=== PATIENT | female | born 1990 | race Caucasian/White ===

== ENCOUNTER → 2017-08-17 15:35 | Outpatient (CLI) | payer OTHER, SELFPAY | PROVIDERS: Visit Provider Obstetrics & Gynecology | DX: R30.0 Dysuria (principal) | CPT/HCPCS: 87086; 87088 ==

== ENCOUNTER 2017-09-05 18:00 | Outpatient (RCR) | payer OTHER, SELFPAY ==
--- NOTE | 2017-05-13 16:04 | HP.PTEVAL_ITS ---
Patient's Visit Information WILLIAMS BONILLA is a 27 year old F referred to Physical Therapy by Out of Town Doctor KYLIE TOWNSEND MD with a diagnosis of FIBROMYALGIA. Date of Evaluation: 05/13/17 Physical Therapist: Macy Barajas Visit Plan Frequency: 2-3x /Week Duration: 4-6 Weeks Plan: AQUATIC THERAPY. POSTURE CORRECTION/STRENGTHENING, INSTRUCTION IN APPROPRIATE BODY MECHANICS AND ACTIVITY MODIFICATIONS. DLS STARTING WITH A NEUTRAL SPINE PROGRESSING ROM TOLERATED. DIMA LE ROM, STRETCHING AND STRENGTHENING. HEP INSTRUCTION. 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 Disability: NO. Present symptoms: PAIN IN HANDS, BOTTOM OF FEET, NECK AND LEFT HIP/BACK. GENERAL PAIN IN ARMS AND LEGS TOO. Present since: ABOUT AGE 14 WHEN DIAGNOSED WITH IBS. STOMACH PAINS SINCE AGE 14 OR SO. MORE SYMPTOMS STARTED TO SHOW UP ABOUT 4 YEARS AGO. Pain Scale: WORST 6/10, LEAST 2/10. Currently: 4/10 IN HANDS, NECK AND LEFT BACK/ HIP RIGHT NOW. SHE REPORTS HER OVER ALL PAIIN IS WORSENING. Commenced as a result of: NO APPARENT REASON. 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 Symptoms at onset: ABDOMINAL PAIN. Worse: ANY PHYSICAL ACTIVITY. Better: HOT SHOWER, ICING HANDS, LEFT HIP STRETCHES GIVEN BY DOCTOR. Disturbed sleep: NO. Previous history/Previous treatment: LUPUS MEDICATION. ANXIETY MEDS. NO PT SINCE HIGH SCHOOL. NO CHIROPRACTIC. NO SPINE OR EXTREMITY SURGERIES. Gait: INDEP GAIT. Accidents: NO. Unexplained weight loss: IN THE LAST YEAR PATIENT HAS LOST ALMOST 30 LBS FOR NO APPARENT REASON. PATIENT REPORTS HER WEIGHT KEEPS DROPPING. HER FAMILY DOCTOR IS KEEPING AN EYE ON IT - DR. BOWDEN. SHE REPORTS SHE IS STILL DROPPING WEIGHT AND LOSING HER HAIR. DR. KYLIE TOWNSEND IN [place] THOUGHT IT MIGHT BE FROM THE LUPUS MEDICINE BUT SHE STOPPED THAT ABOUT A MONTH AGO. Imaging: NONE. PMH: ALLERGIES, ASTHMA, IBS, ACID REFLUX, FIBROMYALGIA, BLADDER ISSUES, MIGRAINES. Recent major surgery: TONSILS, BREAST BIOPSY 2013 - NEGATIVE. OTHER: LIVES ALONE. - Objective Sitting Posture: POOR. Standing Posture: FAIR. Lordosis: NORMAL. Lateral shift: NO. Relevant shift: N/A. Active Correction of posture: WORSE. Other Observations: INDEP GAIT INTO PT WITH NO GROSS DEVIATIONS NOTED EXCEPT RIGIT TRUNK IN SLIGHT FLEXION. INDEP TRANSFER SIT TO STAND WITHOUT UE ASSIST. Motor deficit: DIMA UE AND LE STRENGTH IS GROSSLY 4-5/5 WITH MMT'ING. I PROCEEDED CAREFULLY WITH MMT DUE TO PATIENT APPEARING VERY ANXIOUS THROUGHOUT PT EXAM. Sensory deficit: DIMA UE AND LE LIGHT TOUCH SENSATION IS INTACT AND SYMMETRICAL. ROM deficit: DMIA UE AND LE ROM IS WFL. Lumbar mvmt loss: flex - MOD AND PROVOKES LEFT LOW BACK/HIP PAIN. ext - MIN AND PROVOKES CENTRAL DIMA LBP. R SG - MIN. L SG - MIN. PATIENT IS VERY CAUTIOUS WITH ALL TESTING. Core strength: POOR. Palpation: NO ACUTE TENDERNESS WITH LIGHT PALPATION OF CERVICAL, THORACIC OR LUMBAR SPINE. TENDER WITH LIGHT PALPATION IN THE RIGHT BUTTOCK AND GREATER TROCH REGIONS. - Goals Goal 1:: DECREASE C/O GENERALIZED PAIN ESPECIALLY LEFT LOW BACK/HIP Goal Time Frame: 4-6 Weeks Goal 2:: IMPROVE STANDING, WALKING, ADL, WORK AND LEISURE FUNCTION Goal Time Frame: 4-6 Weeks Goal 3:: INSTRUCT IN PROPHYLAXIS Goal Time Frame: 4-6 Weeks - Rehabilitation Potential Physical Therapy Diagnosis: PATIENT MAY BENEFIT FROM LUMBAR IMAGING. Rehabilitation Potential: Fair - Anticipated Interventions Patient/Client Instruction: Educate patient on: Condition, Plan of Care, Risk Factors, Benefits of Fitness Program For the Purpose of:: To improve self management Therapeutic Exercise to Include: Strength training, Body mechanics, Postural training, Flexibilty training, In an aquatic setting, Dynamic Lumbar Stabilization, Scapular Strength/Stabilization For the Purpose of:: To improve ability of physical actions for home/community/ work/leisure Thank you for the opportunity to evaluate your patient. For Medicare and Medicare HMO plans, please review the plan of care and approve it. It will need to be FAXED BACK to us at [phone] for Medicare purposes. Please let me know if there are questions or concerns regarding this plan of care. Physician Signature: Date:
--- NOTE | 2017-08-01 17:37 | HP.PTREVAL ---
Out of Town Doctor, KLYIE TOWNSEND MD It has been my pleasure to treat WILLIAMS BONILLA over the last 15 visits for FIBROMYALGIA. Please see the progress note below for an update on the physical therapy plan of care! Subjective: PATIENT REPORTS SHE IS GETTING BETTER AND WANTS TO CONTINUE. STATES SHE HAD A FOLLOW UP WITH HER OCCUPATIONAL HYGIENIST AND HE RECOMMENDS CONTINUED WATER EX TOO. STATES SHE IS STARTING TO FEEL STRONGER. Objective/Function: PATIENT IS SHOWING SLOW PROGRESS WITH STRENGTH AND REPORTS OF PAIN HOWEVER NO CHANGE ON FUNCTIONAL SCREEN. UPON EXAM: Lumbar mvmt loss: flex - MIN. ext - MIN AND PROVOKES CENTRAL DIMA LBP. R SG - MIN. L SG - MIN. PATIENT IS STILL CAUTIOUS WITH ALL TESTING BUT LESS ANXIOUS THIS TIME. Core strength: POOR TO FAIR. Palpation: TENDERNESS WITH LIGHT PALPATION OF THORACIC AND DIMA HIPS WITH PATIENT REPORTING GENERALIZED SORENESS. TENDER WITH LIGHT. DIMA UE AND LE STRENGTH 5/5 WITH MMT EXCEPT SHOULDER ABD 4/5 AND DIMA HIPS 4/5. Plan Plan: CONTINUE AQUATIC THERAPY PER ORIGINAL POC 2X'S A WEEK X 2 WEEKS THEN DECREASE TO 1X A WEEK X 6 WEEKS PATIENT BEGINS TO TRANSITION TO INDEP WATER EX AT FACILITY OF HER CHOICE. PROGRESS TOLERATED. Goals Goal 1:: DECREASE C/O GENERALIZED PAIN ESPECIALLY LEFT LOW BACK/HIP Goal Time Frame: 4-6 Weeks Goal Progress: Not Progressing Goal 2:: IMPROVE STANDING, WALKING, ADL, WORK AND LEISURE FUNCTION Goal Time Frame: 4-6 Weeks Goal Progress: Progressing Goal 3:: INSTRUCT IN PROPHYLAXIS Goal Time Frame: 4-6 Weeks Goal Progress: Progressing Anticipated Interventions Patient/Client Instruction: Educate patient on: Condition, Plan of Care, Risk Factors, Benefits of Fitness Program For the Purpose of:: To improve self management Therapeutic Exercise to Include: Strength training, Body mechanics, Postural training, Flexibilty training, In an aquatic setting, Dynamic Lumbar Stabilization, Scapular Strength/Stabilization For the Purpose of:: To improve ability of physical actions for home/community/work/leisure Please do not hesitate to contact me at [phone] by phone or if you have questions or concerns regarding this new plan of care! Sincerely, Macy Whitley
== END 2017-09-05 18:30 | disposition home or self-care (01) ==
LOC: PT 18:00
PROVIDERS: Family Provider Family Medicine; PCP Family Medicine
DX: M79.7 Fibromyalgia (principal)
CPT/HCPCS: 97113 ×2; 97161; 97530

== ENCOUNTER → 2017-09-09 14:54 | Outpatient (CLI) | payer OTHER, SELFPAY | PROVIDERS: Visit Provider Obstetrics & Gynecology | DX: N39.0 Urinary tract infection, site not specified (principal) | CPT/HCPCS: 87086 ==

== ENCOUNTER → 2017-09-09 16:02 | Outpatient (CLI) | payer OTHER, SELFPAY ==
[2017-09-09 18:16] LABS: Color, Urine Yellow (Yellow); Glucose, Dipstick Normal (Normal); Ketone-Dipstick Negative (Negative); Leukocyte Esterase-Dipstick Negative /ul (Negative); Nitrite-Dipstick Negative (Negative); Occult Blood-Urine Negative /ul (Negative); Protein-Dipstick Negative (Negative); Specific Gravity, Urine 1.015 (1.002-1.030); Urine Bilirubin Dipstick Negative (Negative); Urine Clarity Clear (Clear); Urine Urobilinogen Normal (Normal); Urine pH 6.5 (5.0 - 8.0)
[2017-09-09 18:20] LABS: Absolute Lymphocyte Count 1.92 X10^3/ul (0.83-4.51); Basophil# 0.01 X10^3/uL; Basophil% 0.1 % (0-1); Eosinophil# 0.06 X10^3/uL; Eosinophils% 0.7 % (0-5); Hematocrit 40.5 % (37-47); Hemoglobin 13.6 g/dl (12.0-15.0); Lymphocyte # 1.92 X10^3/ul (4.0); Lymphocyte % 22.5 % (19-41); Mean Corp Hgb Conc 33.6 g/gl (32-36); Mean Corpuscular Hgb 31.2 pg (27.0-32.0); Mean Corpuscular Volume 92.9 fL (81-99); Mean Platelet Vol. 9.2 fl (6.2-12.0); Monocyte# 0.54 X10^3/uL; Monocyte% 6.3 % (0-10); Neutrophil # 5.98 X10^3/uL (2.7-7.7); Neutrophil % 70.3 % (47-70); Platelet Count 325 K/mm3 (150-450); RBC Distribution Width SD 40.4 fl (35.1-43.9); Red Blood Count 4.36 M/mm3 (4.2-5.4); White Blood Count 8.5 K/mm3 (4.4-11.0)
[2017-09-09 18:32] LABS: Thyroid Stim Hormone (TSH) 1.29 uIU/mL (0.358-3.74)
[2017-09-09 18:38] LABS: COTININE Drug Screen Negative (<200 ng/mL)
[2017-09-09 18:41] LABS: POSITIVE COUNT NO; POSITIVE DIFFERENTIAL NO; POSITIVE MORPHOLOGY NO
[2017-09-09 18:46] LABS: Amphetamine Urine VISTA NEGATIVE (<1000 ng/mL); Barbiturate Urine VISTA NEGATIVE (< 200 ng/mL); Benzodiazepine Urine VISTA NEGATIVE (< 200 ng/mL); Cocaine Urine VISTA NEGATIVE (< 300 ng/mL); Ecstacy Urine VISTA NEGATIVE (< 500 ng/mL); Methadone Urine VISTA NEGATIVE (< 300 ng/mL); PCP Urine VISTA NEGATIVE (< 25 ng/mL); THC Urine VISTA NEGATIVE (< 50 ng/mL); Vista UDS pH Range 6
[2017-09-09 19:11] LABS: HIV - WCH Non-Reactive (Nonreactive); Rubella IgG > 500.0 IU/mL
[2017-09-11 15:04] LABS: HEPATITIS B SURFACE AG Negative (Negative); Hep C Antibodies <0.1 s/co ratio (0.0-0.9)
[2017-09-16 02:58] LABS: Prenatal RPR NONREACTIVE (NONREACTIVE)
== END ==
PROVIDERS: Visit Provider Obstetrics & Gynecology
DX: Z34.81 Encounter for supervision of other normal pregnancy, first trimester (principal)
CPT/HCPCS: 36415; 80307; 81002; 84443; 85025; 86703; 86762; 86803; 87340

== ENCOUNTER → 2017-11-08 18:13 | Outpatient (CLI) | payer OTHER, SELFPAY ==
[2017-11-08 20:33] LABS: Chlamydia Trachomatis by PCR Negative (Negative); Neisserai gonorrhoeae by PCR Negative (Negative); Probe Check PASS; Sample Adequacy Control PASS; Specimen Processing Control PASS
[2017-11-11 12:10] LABS: HPV Reflexed? NOT INDICATED
== END ==
PROVIDERS: Family Provider Family Medicine; PCP Family Medicine; Visit Provider Obstetrics & Gynecology
DX: Z12.4 Encounter for screening for malignant neoplasm of cervix (principal); Z11.3 Encounter for screening for infections with a predominantly sexual mode of transmission
CPT/HCPCS: 87491; 87591; 88175; G0145

== ENCOUNTER → 2018-01-20 15:41 | Outpatient (CLI) | payer OTHER, SELFPAY ==
[2018-01-20 17:36] LABS: Glucose Challenge Gest 1H 50g 114 mg/dL (70-140)
[2018-01-20 17:37] LABS: Hematocrit 34.1 % (37-47); Hemoglobin 11.3 g/dl (12.0-15.0); Mean Corp Hgb Conc 33.1 g/gl (32-36); Mean Corpuscular Hgb 31.1 pg (27.0-32.0); Mean Corpuscular Volume 93.9 fL (81-99); Platelet Count 296 K/mm3 (150-450); RBC Distribution Width CV 12.7 % (11.6-14.6); RBC Distribution Width SD 43.5 fl (35.1-43.9); Red Blood Count 3.63 M/mm3 (4.2-5.4); White Blood Count 10.8 K/mm3 (4.4-11.0)
[2018-01-20 17:38] LABS: Scan Indicated on CBC? Y/N NO
== END ==
PROVIDERS: Visit Provider Obstetrics & Gynecology
DX: Z34.83 Encounter for supervision of other normal pregnancy, third trimester (principal)
CPT/HCPCS: 36415; 82950; 85027

== ENCOUNTER 2018-02-11 21:17 | Observation (INO) | payer OTHER, SELFPAY ==
[2018-02-11] MEDS: Betamethasone/Betamethasone 30 MG/5 ML Vial 12 MG IM (20:54)
[2018-02-11 21:15] LABS: Hematocrit 32.8 % (37-47); Hemoglobin 11.2 g/dl (12.0-15.0); Mean Corp Hgb Conc 34.1 g/gl (32-36); Mean Corpuscular Hgb 31.8 pg (27.0-32.0); Mean Corpuscular Volume 93.2 fL (81-99); Mean Platelet Vol. 8.8 fl (6.2-12.0); Platelet Count 266 K/mm3 (150-450); RBC Distribution Width CV 12.8 % (11.6-14.6); RBC Distribution Width SD 43.6 fl (35.1-43.9); Red Blood Count 3.52 M/mm3 (4.2-5.4); Scan Indicated on CBC? Y/N NO; White Blood Count 10.9 K/mm3 (4.4-11.0)
--- NOTE | 2018-02-11 21:26 | MISC_PTH ---
PATIENT: ADRI SANDOVAL LOC: [facility] U#:[id number] AGE/SX: 27/F ROOM: WP015 RE02/11/[address]: Dr. Adri Richards MD : 1990 BED: 1 DIS: 02/13/2018 SPEC #: [id number] RECD: 02/11/18 23:00 STATUS: MERRITT ADDY #: [id number] LILIAN: 02/11/18 21:[address]: Adri Richards DEPT: SURGICAL PATHOLOGY RECD BY: Roxi Orellana ENTERED: 02/13/18 09:29 SP TYPE: [facility] [place]: Dr. Derrick Copeland, DO Tissues: Vagina, NOS Procedures: Surgery Specimen Level III HEADER OPERATION: Not noted PRE-OP DIAGNOSIS: Complete placenta previa TISSUE SUBMITTED: Tissue passed per vagina MICROSCOPIC DIAGNOSIS Tissue passed per vagina: A piece of blood clot and fibrinous material with numerous organisms consistent with bacteria. Placental tissue is not identified. KANA:michael 02/14/18 MICROSCOPIC DESCRIPTION Slides are reviewed. GROSS DESCRIPTION Received is one container labeled with the patient's name and not further designated. The specimen consists of a piece of blood clot measuring 6 x 3 x 2 cm. A whitish piece of tissue is noted at one edge of the specimen. No tissue or placental tissue is identified. Bowling Ball Weigher And Packer sections are submitted in three cassettes. The whitish tissue is present in cassette #1. / KANA:michael 02/13/18 TC:5 CPT: 49192
[2018-02-11 21:33] VITALS: BMI 25.6
[2018-02-11 22:58] LABS: Pathology Specimen OB SEE PATHOLOGY REPORT
[2018-02-12] MEDS: Zolpidem Tartrate 5 MG Tablet PO (00:48)
--- NOTE | 2018-02-12 09:31 | PCM.HP.OB ---
- Problem List (1) Placenta previa Status: Chronic (2) Vaginal bleeding during Status: Acute (3) 31 to 32 weeks gestation of Status: Acute History Date of Admission: 02/11/18 Final WM: 04/11/18 Final WM Source: US <20 weeks Gestational age: 31 Weeks and 5 Days History of this : This is a 27 year-old, G 1, P 0, at 31 4/7 wk gestational age presents for evalutaion with CC of heavy vaginal bleeding. Relates she has had severe back pain and lower abdominal pain in the last day or so and was unable to walk due to the pain, but just started bleeding prior to admission. Lives in [place] and the trip was very fast today d/t concerns. Baby is active. She brings in pad with bleeding noted. States placenta previa but has not had any bleeding in the other than several episodes of very scant brown discharge prior to earlier today. She has been on pelvic rest since diagnosis of the previa. She has IBS and fibromyalgia as well as h/o interstitial cystitis, and anxiety. Allergies cephalexin Allergy (Verified 02/11/18 21:35) Hives fluconazole Allergy (Verified 02/11/18 21:34) Rash Home Medications: Home Medications Vit Calc,Iron,Folic [ Vitamins] 1 each PO DAILY 02/11/18 History Past Pregnancies: Past Pregnancies Delivery Date Name GA/Weeks Outcome Route Weight Gender Labor Length Anesthesia Delivery Location Provider FOB NONE> Labs: A Negative. Rubella Immune. Hepatitis B neg , HIV neg, RPR neg. Review of Systems Constitutional: Denies: Chills, Fever Eyes: Denies: Blurred vision HEENT: Denies: Difficulty Hearing Gastrointestinal: Reports: Abdominal Pain - cramping in abdomen and some low back pain. Gynecological: Reports: Vaginal bleeding - scant brn spotting earlier in . Blood running down her leg prior to presentation today. Psychiatric: Reports: Anxiety Physical Exam Vitals: AVSS General: Alert, Oriented x3, Cooperative, No apparent distress HEENT: Atraumatic Abdomen: Soft, Non Tender - active movement on monitor. Difficult to keep baby on monitor 2/2 movement. , Gravid Extremities:: No clubbing, No cyanosis, No edema Neurological: Cranial nerves II-XII grossly intact PRODUCT ASSURANCE ENGINEER: Normal external genitalia - scant blood noted. organized clot vs tissue removed from upper vagina. Estimated gestational size: Appropriate for gestational size Presentation: Cephalic - by sono done 02/08/18 in ofc. EFW 4# 7 oz. DAVID sl inc 22 cm. Cervix Dilation (cm): 0 - visually closed on speculum exam. Assessment/Plan All Active Problems Vaginal bleeding during (Acute) 31 to 32 weeks gestation of (Acute) This is a 27 year-old, G 1, P 0, at 31 4/7 weeks gestational age with known placenta previa. FIRST BLEED Vaginal bleeding with tissue vs organized clot noted on speculum exam, sent for pathology evaluation. monitoring reassuring, active movement. No regular UCs. Minimal bleeding at present. Clinically stable. Admit for extended observation and expectant management. CBC, Type and screen. Saline lock. Betamethasone 12 mg IM tonight and again on 02/12/18, 24 hr after first dose. Benefits discussed with pt and spouse. RhoGAM to be given Reviewed all with patient and her . All questions answered to their satisfaction. If remains stable, may dischg home for continued bedrest and pelvic rest with close follow up in office. Advised if increased bleeding / hemorrhage will proceed to C section delivery and likely at this EGA (10/08) baby would likely require transport to [facility] for care.
--- NOTE | 2018-02-12 09:56 | PCM.PN.OB ---
Patient Problems: Active and Suspected Problems Vaginal bleeding during (Acute) 31 to 32 weeks gestation of (Acute) Subjective: 31 5/7 wk EGA . complete placenta previa Doing well Active FM. Minimal bleeding overnight, nearly resolved then a little more fresh red blood noted. Minimal occasional cramping. Able to sleep. Asking questions about plan from here. - Physical Exam General: Alert, Oriented x3, Cooperative, No apparent distress HEENT: Atraumatic Neck: Supple Abdomen: Soft, Gravid Extremities: No clubbing, No cyanosis, No edema Skin: No rashes Neurological: Cranial nerves II-XII grossly intact Psych/Mental Status: Normal Affect, Appropriate Weight: 69.853 kg Body Mass Index (BMI) 25.6 Laboratory Tests Past 24 Hrs 02/11/18 02/11/18 02/11/18 20:56 20:56 22:55 WBC 10.9 RBC 3.52 L Hgb 11.2 L Hct 32.8 L MCV 93.2 MCH 31.8 MCHC 34.1 RDW 12.8 RDW Differential 43.6 Plt Count 266 MPV 8.8 Blood Type A NEGATIVE Antibody Screen NEGATIVE Screen NEGATIVE Baby's Blood Type TNP Baby's GENARO TNP Medical Necessity - Tobacco Use Tobacco Use: Non-smoker Assessment/Plan All Active Problems Vaginal bleeding during (Acute) 31 to 32 weeks gestation of (Acute) G 1 P 0 at 31 5/7 weeks EGA with known placenta previa. S/P FIRST BLEED. Steroids and RhoGAM given. NST reactive last night and again this am. Active movement. Rare UC noted by patient. Very minimal bleeding . Clinically stable. --NST q shift with prn continuous monitoring if pain or inc bleeding. --Continue observation today. Potential dischg home to continue bedrest at home by tomorrow if all remains stable. --Betamethasone 12 mg IM second dose tonight. Benefits again reviewed with pt and spouse. Discussed plan of care again with patient and her . All questions answered to their satisfaction.
[2018-02-12] MEDS: Prenatal Vits Tablet 1 TABLET PO (10:45)
[2018-02-12] MEDS: Acetaminophen 500 MG Tablet PO (17:03)
[2018-02-12] MEDS: Magnesium Hydroxide 30 ML UDC PO (19:52)
[2018-02-12] MEDS: Betamethasone/Betamethasone 30 MG/5 ML Vial 12 MG IM (21:20)
--- NOTE | 2018-02-13 08:29 | PCM.PN.OB ---
Patient Problems: Active and Suspected Problems Vaginal bleeding during (Acute) 31 to 32 weeks gestation of (Acute) Subjective: 31 6/7 wk EGA placenta previa. No further bleeding, slept well. no spotting. BAKER gone. No cramping. Active FM and doing NST now. - Physical Exam General: Alert, Oriented x3, Cooperative, No apparent distress HEENT: Atraumatic Neck: Supple Abdomen: Soft, Gravid Neurological: Cranial nerves II-XII grossly intact Psych/Mental Status: Normal Affect Comment: NST reactive 130-140 with accels. no UCs noted on monitor Weight: 69.853 kg Body Mass Index (BMI) 25.6 Medical Necessity - Tobacco Use Tobacco Use: Non-smoker Assessment/Plan All Active Problems Vaginal bleeding during (Acute) 31 to 32 weeks gestation of (Acute) G 1 P 0 at 31 6/7 weeks EGA with known placenta previa. S/P FIRST BLEED. Steroids and RhoGAM given. NST reactive this am. Active movement. Rare UC noted by patient. No vaginal bleeding . Clinically stable. Dischg home to continue bedrest. RTO within 1 wk for f/u Return to hospital if inc vaginal bleeding again.
--- NOTE | 2018-02-13 08:32 | PCM.DC.SUM ---
Discharge Date and Diagnosis - Problem List Patient Problems: Active and Suspected Problems Vaginal bleeding during (Acute) 31 to 32 weeks gestation of (Acute) Date of Admission: 02/11/18 Date of Discharge: 02/13/18 - Primary Discharge Diagnosis Active and Suspected Problems Vaginal bleeding during (Acute) 31 to 32 weeks gestation of (Acute) - Secondary Discharge Diagnosis Chronic Problems Placenta previa (Chronic) Hospital Course and Treatment Summary of Care Provided: The patient is a 27 year old female at 31 4/7 wk EGA with complete placenta previa. Presents with severe cramping and vaginal bleeding starting just prior to admission. Admitted for observation, monitoring steroids for lung maturity EXAM at admission: Tissue vs organized clot removed from upper vagina and sent for path evaluation, identification. Very minimal to no active bleeding noted then. cervix appears closed. EFM reassuring with NSTs reactive. Active FM Hgb 11.2 g/dl. A NEG and RHOGAM given on 02/10/18 also. Completed course of steroids on PM 02/11/18 to pm 02/12/18. clinically stable then and sent home to continue bedrest, pelvic rest. Home Medications: Medications to take at Discharge Vit Calc,Iron,Folic [ Vitamins] 1 each PO DAILY 02/11/18 Primary Care Physician: Derrick Copeland DO [Primary Care Provider] - Medical Necessity - Tobacco Use Tobacco Use: Non-smoker Meaningful Use Info Meaningful Use Diagnoses (Choose all that apply): None applicable
== END 2018-02-13 08:46 | disposition home or self-care (01) ==
PROVIDERS: Admitting Provider Obstetrics & Gynecology; Family Provider Family Medicine; PCP Family Medicine; Visit Provider Obstetrics & Gynecology
DX: O44.13 Complete placenta previa with hemorrhage, third trimester (principal); Z3A.31 31 weeks gestation of pregnancy; M79.7 Fibromyalgia; K58.9 Irritable bowel syndrome, unspecified; N30.10 Interstitial cystitis (chronic) without hematuria
CPT/HCPCS: 36415; 59025; 59050; 85027; 85461; 86850; 86900; 88304; 88305; 90384; 96372; 99218; A4216; G0378; J0702; J2790

== ENCOUNTER 2018-02-15 20:15 | Outpatient (CLI) | payer OTHER, SELFPAY ==
[2018-02-15 21:12] LABS: Absolute Lymphocyte Count 2.24 X10^3/ul (0.83-4.51); Absolute Neutrophil Count 9.9 X10^3/uL (2.0-7.7); Basophil# 0.01 X10^3/uL; Basophil% 0.1 % (0-1); Eosinophil# 0.09 X10^3/uL; Eosinophils% 0.7 % (0-5); Hemoglobin 11.7 g/dl (12.0-15.0); Lymphocyte # 2.24 X10^3/ul (4.0); Lymphocyte % 16.9 % (19-41); Mean Corp Hgb Conc 33.4 g/gl (32-36); Mean Corpuscular Hgb 31.3 pg (27.0-32.0); Mean Corpuscular Volume 93.6 fL (81-99); Mean Platelet Vol. 8.8 fl (6.2-12.0); Monocyte# 0.95 X10^3/uL; Monocyte% 7.2 % (0-10); Neutrophil # 9.87 X10^3/uL (2.7-7.7); Neutrophil % 74.4 % (47-70); POSITIVE COUNT NO; POSITIVE DIFFERENTIAL NO; POSITIVE MORPHOLOGY NO; Platelet Count 329 K/mm3 (150-450); RBC Distribution Width SD 44.4 fl (35.1-43.9); Red Blood Count 3.74 M/mm3 (4.2-5.4); White Blood Count 13.3 K/mm3 (4.4-11.0)
--- NOTE | 2018-02-15 21:32 | OB.TRI.NOTE ---
- Problem List (1) Placenta previa Status: Chronic (2) Vaginal bleeding during Status: Acute (3) 31 to 32 weeks gestation of Status: Acute History of Present Illness Date of Service: 02/15/18 Was patient seen by the physician?: Yes Reason For Visit: R/O LABOR, Complete previa with bleeding Date of Service: 02/15/18 Final WM: 04/11/18 Final WM Source: US <20 weeks Gestational age: 32 Weeks and 1 Days History of Present Illness: Adri is a 27 year old at 32w1d ega dated by early first trimester US who presents with episode of abdominal tightening followed by vaginal bleeding. Noted blood soaking through clothes to floor. She has a known complete posterior placenta previa. She has a similar episode 3 days ago and was admitted for observation. Bleeding subsided. Cervix closed on that admission. On her admission 3 days ago was given Rhogam ( patient has A negative blood type). She also was given Celestone IM x 2 doses of 12mg given 24 hours apart. Allergies cephalexin Allergy (Verified 02/11/18 21:35) Hives fluconazole Allergy (Verified 02/11/18 21:34) Rash Review of Systems Constitutional: Denies: Anorexia, Chills, Fever, Night Sweats Cardiovascular: Denies: Chest Pain, Chest Pressure, Chest Tightness, Edema Respiratory: Denies: Shortness of Breath, Shortness of breath at rest Gastrointestinal: Denies: Abdominal Pain, Constipation, Diarrhea, Nausea, Vomiting Genitourinary: Denies: Dysuria, Frequency, Hematuria Gynecological: Reports: Vaginal bleeding Psychiatric: Denies: Anxiety, Depression Physical Exam General: Alert, Oriented x3, Cooperative, No apparent distress Cardiovascular: Regular rate, Regular Rhythm Lungs: Clear to auscultation, Normal air movement Abdomen: Soft, Non Tender, Non-Distended, Gravid, Appropriate for Gestational Age Extremities:: No edema Neurological: Cranial nerves II-XII grossly intact, Neuro grossly intact TEAM DRIVER: Normal external genitalia Estimated gestational size: Appropriate for gestational size Presentation: Cephalic Cervix Dilation (cm): 0 Station: -3 Effacement (%): 0 NST - FHR Rate Baby A Baseline: 150s Variability:: Moderate Accelerations:: 15 x 15 Decelerations:: None NST Reactive:: Yes, Appropriate for gestational age FHR Category:: Category I Uterine Activity:: rare Impression/Plan Complete previa at 32w1d ega with second episode of significant vaginal bleeding over the last 3 days. Hgb 11.7. Rh negative and received rhogam on 02/12. Completed 2 doses of Celestone IM over 24 hours last dose 02/12. Given remoteness from delivery and limitations of our special care nursery will transfer to [facility] under the care of Dr. Duron ([facility]). Patient understands indications and reasons for transfer. Will followup with me if eventually discharged from care.
[2018-02-15 21:59] VITALS: BMI 25.1
== END 2018-02-15 22:40 | disposition short-term general hospital (02) ==
LOC: WPOUT 20:36 → WP 20:37
PROVIDERS: Family Provider Family Medicine; PCP Family Medicine; Visit Provider Obstetrics & Gynecology
DX: O44.13 Complete placenta previa with hemorrhage, third trimester (principal); Z3A.32 32 weeks gestation of pregnancy
CPT/HCPCS: 36415; 59025; 59050; 76815; 85025; 86850; 86900; 86901; 99218; G0378

== ENCOUNTER 2019-04-05 15:08 | Emergency (ER) | payer OTHER, SELFPAY ==
[2019-04-05 15:11] VITALS: BP 118/84; PULSE 103; RESP 16; TEMP 37; O2SAT 98; BMI 22.3
--- NOTE | 2019-04-05 15:14 | RAD_ITS ---
STUDY: X-RAY CHEST REASON FOR EXAM: Female, 28 years old. Palpitations TECHNIQUE: PA and lateral COMPARISON: None. FINDINGS: The lungs are clear and expanded. There is no demonstrated pleural abnormality. Normal size heart. Normal mediastinum and tigre. Normal visualized pulmonary arteries. Normal visualized aortic arch and descending thoracic aorta. Normal visualized thoracic spine. Normal visualized ribs, clavicles, and shoulders. There is no demonstrated abnormality of the visualized soft tissue structures of the upper abdomen. RAD/Chest PA and Lateral IMPRESSION: Normal x-ray examination of the chest. Electronically Signed: Antoine Barron MD at 16:18 EDT , Service support ,
--- NOTE | 2019-04-05 15:14 | EKG12_ITS ---
Test Reason : CP Blood Pressure : / mmHG Vent. Rate : 094 BPM Atrial Rate : 094 BPM P-R Int : 128 ms QRS Dur : 090 ms QT Int : 336 ms P-R-T Axes : 074 084 039 degrees QTc Int : 420 ms Normal sinus rhythm with sinus arrhythmia Normal ECG Confirmed by FREDDY MURILLO ([id number]), design editor CHAR PLASCENCIA ([id number]) on 04/09/2019 12:24:09 PM Referred By: SHANIQUE Confirmed By:FREDDY MURILLO
--- NOTE | 2019-04-05 15:16 | ED.DCSUM_ITS ---
History of Present Illness Chief Complaint: Chest Pain Informant: Patient Onset: Today Context: Sudden Onset Timing: Continuous Current Severity: Moderate Maximum Severity: Severe Narrative: The patient presents to the emergency department chest pain and heart racing. The patient was in her normal state of health. She was at work sitting at her desk. She states she began to feel the sudden onset sensation of heart racing. She states that she wears a exercise watch. She checked her heart rate was in the 200s. She was feeling lightheaded and dizzy. She states that she was given aspirin. She laid down. On squad arrival, her heart rate was in the 1 teens. She was given 1 nitro which helped her pain. She states she is had elevated heart rates in the 150s and 170s but has never been diagnosed with SVT or a reentrant tachycardia. She currently is not taking any medications. She has no history of pulmonary embolus. She denies leg edema. She denies orthopnea. She denies any fevers or chills. Prior similar symptoms: No Recent Illness/Hospitalization: No Past Medical History - Allergies and Home Meds Allergies/Adverse Reactions: Allergies cephalexin Allergy (Verified 04/05/19 15:46) Hives fluconazole Allergy (Verified 04/05/19 15:46) Rash Primary Care Physician: Derrick Copeland DO [Primary Care Provider] - Rajeev Dinh MD [STAFF PHYSICIAN] - Prior records reviewed: Yes Past Medical History: - Surgical History: no surgical history Review of Systems General: Denies: Chills, Fever, Sweats Eyes: Denies: Visual changes - bilaterally, Diplopia ENT: Denies: Rhinorrhea, Sore throat Cardiovascular: Reports: Chest pain, Palpitations, Heart racing Respiratory: Denies: Dyspnea, Cough, Dyspnea on exertion Gastrointestinal: Denies: Abdominal pain, Nausea, Vomiting, Diarrhea, Melena, Hematochezia Genitourinary: Denies: Dysuria, Hematuria, Frequency Musculoskeletal: Denies: Back pain, Extremity Pain Skin: Denies: Rash, Wounds Neurological: Denies: Headache, Weakness, Numbness Physical Exam Inital Vital Signs reviewed: Yes General: Well nourished, Well developed, No Acute Distress Head: Normocephalic, Atraumatic Eyes: Perrl, EOMI ENT: Moist mucous membranes, No rhinorrhea Neck: Supple, Nontender Cardiovascular: Regular rate, Regular rhythm, No murmurs Respiratory: No distress, CTA bilaterally, Chest nontender Abdomen: Soft, Nontender, Nondistended, Normal bowel sounds Back: Nontender, Normal Inspection Extremities: Nontender, No edema Skin: Normal color, No rash Neurological: Alert, Oriented x3, Cranial nerves II-XII grossly intact, Normal Strength, Normal Sensation Psychological: Normal affect, Normal Mood Diagnostic/Tx/Re-eval Chest X-Ray - ED: 2 View, Normal, Heart, Lungs, Mediastinum, No Infiltrates Clinical Impression(s) from Imaging Studies Chest X-Ray 04/05/19 15:14 IMPRESSION: Normal x-ray examination of the chest. Electronically Signed: Antoine Barron MD at 16:18 EDT , Service support , Abnormal Lab Results 04/05/19 04/05/19 04/05/19 15:22 15:22 15:22 WBC 9.2 RBC 4.76 Hgb 14.5 Hct 43.8 MCV 92.0 MCH 30.5 MCHC 33.1 RDW Std Deviation 39.4 RDW Coeff of Ashlie 11.5 L Plt Count 359 MPV 8.8 Immature Gran % (Auto) 0.300 Neut % (Auto) 67.4 Lymph % (Auto) 24.4 [place] % (Auto) 6.7 Eos % (Auto) 0.7 Baso % (Auto) 0.5 Absolute Neuts (auto) 6.2 Absolute Lymphs (auto) 2.25 Nucleated RBC % 0 D-Dimer Quant (PE/DVT) 0.33 Sodium 142 Potassium 3.7 Chloride 107 Carbon Dioxide 29.0 Anion Gap 6 BUN 13 Creatinine 0.73 Estim Creat Clear Calc 102.32 Est GFR (MDRD) Af Amer 120 Est GFR (MDRD) Non-Af 99 BUN/Creatinine Ratio 17.8 Glucose 96 Calcium 8.8 Magnesium 2.1 Total Bilirubin 0.30 AST 10 L ALT 16 Alkaline Phosphatase 71 Troponin I < 0.015 Total Protein 7.5 Albumin 4.1 Globulin 3.4 Albumin/Globulin Ratio 1.2 TSH 1.59 Urine Color Urine Clarity Urine pH Ur Specific [place] Urine Protein Urine Glucose (UA) Urine Ketones Urine Occult Blood Urine Nitrite Urine Bilirubin Urine Urobilinogen Ur Leukocyte Esterase Urine RBC Urine WBC Ur Squamous Epith Cells Urine Bacteria Urine Mucus Urine Test 04/05/19 04/05/19 15:45 15:45 WBC RBC Hgb Hct MCV MCH MCHC RDW Std Deviation RDW Coeff of Ashlie Plt Count MPV Immature Gran % (Auto) Neut % (Auto) Lymph % (Auto) [place] % (Auto) Eos % (Auto) Baso % (Auto) Absolute Neuts (auto) Absolute Lymphs (auto) Nucleated RBC % D-Dimer Quant (PE/DVT) Sodium Potassium Chloride Carbon Dioxide Anion Gap BUN Creatinine Estim Creat Clear Calc Est GFR (MDRD) Af Amer Est GFR (MDRD) Non-Af BUN/Creatinine Ratio Glucose Calcium Magnesium Total Bilirubin AST ALT Alkaline Phosphatase Troponin I Total Protein Albumin Globulin Albumin/Globulin Ratio TSH Urine Color Yellow Urine Clarity Clear Urine pH 8.0 Ur Specific [place] 1.010 Urine Protein Negative Urine Glucose (UA) Normal Urine Ketones Negative Urine Occult Blood Negative Urine Nitrite Negative Urine Bilirubin Negative Urine Urobilinogen Normal Ur Leukocyte Esterase Negative Urine RBC 0 SEEN Urine WBC 0 SEEN Ur Squamous Epith Cells 0 SEEN Urine Bacteria 0 SEEN Urine Mucus 0 SEEN Urine Test Negative - Rhythm Strip Rhythm Strip: Sinus Rhythm Rate: 90 Ectopy: PAC(s) - EKG Initial EKG Interpretation: No Acute Injury Pattern, Sinus Arrythmia Prior: No Prior - Medical Decision Making The patient presents to the emergency department palpitations. She did have a heart rate in the 200s. EKG was obtained on arrival. She is now in a sinus arrhythmia at a rate of 104. There is no evidence of WPW. There is a normal axis and intervals. Metabolic work-up was pursued. Screening labs including cardiac enzymes and electro lites were normal. Chest x-ray shows no enlarged cardiac silhouette. D-dimer testing was negative. The patient maintained sinus at a rate of 90. At this point, my suspicion is either for SVT or AVRNT. The patient is now in sinus rhythm with a rate of 88. I did discuss the patient with Dr. Dinh. We are going to have the patient wear a Holter monitor and follow-up as an outpatient with cardiology. She is comfortable with this plan of care. Impression. 1. Symptomatic palpitations-resolved ED Disposition - Plan for ED Patient: Instructions: Palpitations Referrals: Derrick Copeland DO [Primary Care Provider] - Rajeev Dinh MD [STAFF PHYSICIAN] -
[2019-04-05 15:24] VITALS: PULSE 111; RESP 16; O2SAT 98
[2019-04-05 15:40] VITALS: BP 109/76; BP 110/81; BP 123/93; PULSE 102; PULSE 121; PULSE 95
[2019-04-05 15:40] LABS: Absolute Lymphocyte Count 2.25 X10^3/uL (0.83-4.51); Absolute Neutrophil Count 6.2 X10^3/uL (2.0-7.7); Basophil# 0.05 X10^3/uL; Basophil% 0.5 % (0-1); Eosinophil# 0.06 X10^3/uL; Eosinophils% 0.7 % (0-5); Hematocrit 43.8 % (37-47); Hemoglobin 14.5 g/dL (12.0-15.0); Lymphocyte # 2.25 X10^3/ul (4.0); Lymphocyte % 24.4 % (19-41); Mean Corp Hgb Conc 33.1 g/dL (32-36); Mean Corpuscular Hgb 30.5 pg (27.0-32.0); Mean Platelet Vol. 8.8 fl (6.2-12.0); Monocyte# 0.62 X10^3/uL; Monocyte% 6.7 % (0-10); NRBC Flagged by Analyzer 0 % (0-5); Neutrophil # 6.21 X10^3/uL (2.7-7.7); Neutrophil % 67.4 % (47-70); Platelet Count 359 K/mm3 (150-450); RBC Distribution Width CV 11.5 % (11.6-14.6); RBC Distribution Width SD 39.4 fl (35.1-43.9); Red Blood Count 4.76 M/mm3 (4.2-5.4); White Blood Count 9.2 K/mm3 (4.4-11.0)
[2019-04-05] MEDS: 0.9% Normal Saline 1,000 ML 1000 ML IV (15:46)
[2019-04-05 15:51] LABS: Bacteria 0 SEEN /hpf (None Seen); Mucous, Urine 0 SEEN /hpf (<or=2+); Red Blood Cells-Urine 0 SEEN /hpf (0-5); Squamous Epithelial Cells - UA 0 SEEN /hpf (5-10); White Blood Cells 0 SEEN /hpf (0-5)
[2019-04-05 15:59] LABS: ALB/GLOB Ratio 1.2 RATIO (0.9-2.4); AST(SGOT) 10 U/L (15-37); Alanine Aminotransfer ALT/SGPT 16 U/L (13-56); Albumin, Serum 4.1 g/dL (3.2-5.0); Alkaline Phosphatase 71 U/L (45-117); Anion Gap 6 (5-15); BUN 13 mg/dL (7-18); BUN/Creat Ratio 17.8 RATIO (10-20); Calcium,Total 8.8 mg/dL (8.5-10.1); Chloride 107 mmol/L (98-107); Creatinine, Serum 0.73 mg/dL (0.55-1.02); EST Glomerular Filtration Rate 99 mL/min (>60); Est Glom Filt Rate - Afr Amer 120 mL/min (>60); Estimated Creatinine Clearance 102.32 ml/min; Globulin 3.4 g/dL (2.2-4.2); Glucose 96 mg/dL (74-106); Magnesium 2.1 mg/dL (1.6-2.6); Potassium 3.7 mmol/L (3.5-5.1); Protein, Total 7.5 g/dL (6.4-8.2); Sodium Level 142 mmol/L (136-145); Thyroid Stim Hormone (TSH) 1.59 uIU/mL (0.358-3.74)
[2019-04-05 16:01] LABS: Color, Urine Yellow (Yellow); Glucose, Dipstick Normal (Normal); Ketone-Dipstick Negative (Negative); Leukocyte Esterase-Dipstick Negative /ul (Negative); Nitrite-Dipstick Negative (Negative); Occult Blood-Urine Negative /ul (Negative); Protein-Dipstick Negative (Negative); Urine Bilirubin Dipstick Negative (Negative); Urine Clarity Clear (Clear); Urine Urobilinogen Normal (Normal)
[2019-04-05 16:06] LABS: Internal QC Validated? YES +Cl - CLEAR BKGD
[2019-04-05 16:07] LABS: Pregnancy, Urine Negative Negative
[2019-04-05 16:45] LABS: D-Dimer Quantitative (DVT/PE) 0.33 FEU/ug/m (0.27-0.49)
[2019-04-05 16:58] VITALS: BP 120/81; PULSE 83; RESP 14; O2SAT 100
[2019-04-05 17:16] VITALS: BP 110/65; PULSE 88; RESP 14; O2SAT 100
== END 2019-04-05 17:54 | disposition home or self-care (01) ==
LOC: ED 15:23
PROVIDERS: Emergency Provider Emergency Medicine; Family Provider Family Medicine; PCP Family Medicine
DX: R00.2 Palpitations (principal)
CPT/HCPCS: 71046; 80053; 81001; 81025; 83735; 84443; 84484; 85025; 85379; 93005; 96360; 99285; J7030; A4216

== ENCOUNTER → 2019-04-05 17:34 | Outpatient (CLI) | payer OTHER, SELFPAY ==
[2019-04-05 15:11] VITALS: BMI 22.3
== END ==
PROVIDERS: Family Provider Family Medicine; PCP Family Medicine; Visit Provider Emergency Medicine
DX: R07.9 Chest pain, unspecified (principal)
CPT/HCPCS: 93225; 93226

== ENCOUNTER → 2019-04-19 15:02 | Outpatient (CLI) | payer OTHER, SELFPAY ==
[2019-04-05 15:11] VITALS: BMI 22.3
--- NOTE | 2019-04-19 15:03 | ECHOD_ITS ---
Reason For Study: ARRHYTHMIA Procedure This was a 2D Doppler, Color Flow transthoracic echocardiogram. The exam was of adequate technical quality. Exam performed in department. Left Ventricle Normal LV size. Left ventricular systolic function is normal. The estimated ejection fraction is 60 %. No evidence for diastolic dysfunction. No regional wall motion abnormalities noted. Right Ventricle Normal RV size. Normal systolic function. Atria Normal left atrium. Normal right atrium. No doppler evidence for ASD. Mitral Valve There is no mitral annular calcification. Normal mitral valve. Trivial mitral valve insufficiency. Tricuspid Valve Normal tricuspid valve. Trivial tricuspid valve insufficiency. Right ventricular systolic pressure estimated to be 29 mmHg. Aortic Valve Trisinus/trileaflet aortic valve. Normal aortic valve. Pulmonic Valve The pulmonic valve is not well visualized. Trivial pulmonic valve insufficiency. Great Vessels Normal sized aortic root. Pericardium/Pleural No pericardial effusion. MMode/2D Measurements & Calculations LVIDd: 4.7 cm IVSd: 0.65 cm Ao root diam: 2.5 cm LVIDs: 2.9 cm LVPWd: 0.65 cm RVDd: 2.6 cm FS: 37.2 % LAV(MOD-bp): 45.3 ml LA A4 area: 15.0 cm2 LA dimension(2D): 2.6 cm LAV(MOD-bp) Indexed: 27.1 ml/m2 LAV(MOD-sp2): 43.8 ml LAV(MOD-sp4): 42.9 ml RA A4 area: 12.6 cm2 Time Measurements MV dec time: 0.19 sec Doppler Measurements & Calculations MV E max tim: 101.5 cm/sec Lat Peak E' Tim: 12.6 cm/sec Med Peak E' Tim: 11.3 cm/sec MV A max tim: 75.8 cm/sec E/E' lat: 8.0 E/E' med: 9.0 MV E/A: 1.3 Ao V2 max: 144.0 cm/sec LV V1 max: 102.9 cm/sec PA V2 max: 115.7 cm/sec Ao max P.3 mmHg LV V1 max P.2 mmHg TR max tim: 253.1 cm/sec TR max P.6 mmHg Interpretation Summary Left ventricular systolic function is normal. The estimated ejection fraction is 60 %. Trivial mitral valve insufficiency. Trivial tricuspid valve insufficiency. Trivial pulmonic valve insufficiency. Right ventricular systolic pressure estimated to be 29 mmHg. No evidence for diastolic dysfunction. Ordering Physician: Rajeev Dinh Referring Physician: Derrick Copeland Performed By: Jen Mustafa RDCS, RVT
== END ==
PROVIDERS: Family Provider Family Medicine; PCP Family Medicine; Referring Provider Internal Medicine Cardiovascular Disease; Visit Provider Internal Medicine Cardiovascular Disease
DX: I47.2 Ventricular tachycardia (principal); I49.1 Atrial premature depolarization; I49.3 Ventricular premature depolarization
CPT/HCPCS: 93306

== ENCOUNTER → 2019-05-08 09:56 | Outpatient (CLI) | payer OTHER, SELFPAY ==
[2019-04-24 15:06] VITALS: BMI 22.6
--- NOTE | 2019-05-08 09:57 | STE_ITS ---
Reason For Study: Chest Pain; Palpitations Stress Results Protocol: Darwin Protocol Maximum Predicted HR: 190 bpm Target HR: 162 bpm % Maximum Predicted HR: 89 % Heart Stage Duration Rate BP Comment (mm:ss) (bpm) Baseline 88 102/60No Chest Pain; Technically Difficult Study Darwin Protocol Stage I 3:00 106 116/58No Chest Pain Darwin Protocol Stage II 3:00 116 114/60No Chest Pain; Mild Dyspnea Darwin Protocol Stage III 3:00 139 118/52No Chest Pain; Mild to Moderate Dyspnea Darwin Protocol Stage IV 1:00 169 / Burning Chest Pain; Mild to Moderate Dyspnea No Chest Pain; Exp Wheezes in Left Upper Lobe Two Minutes Recovery 96 104/52Into Recovery; Lungs CTA 5 Minutes Into Recovery Stress Duration: 10:00 mm:ss Maximum Stress HR: 169 bpm METS: 13 Baseline Echocardiogram Findings Stress Echo Wall motion Data Resting WM Intermediate WM Stress WM Resting Wall Motion Wall Motion Stress All segments Normal. All segments Hyperkinetic. Ejection Fraction 55 %. Ejection Fraction 65 %. Stress Results Heart rate response: Appropriate Blood pressure response: Normal resting blood pressure-appropriate response Arrhythmias: Occasional PVC pretest, during exercise, and recovery and an isolated ventricular couplet during exercise Functional capacity: Good Stopped: Secondary to dyspnea. EKG Data Baseline ECG: Sinus rhythm. Exercise ECG: No obvious ECG changes. Symptoms with Stress No complaint of chest discomfort reported during exercise. Notation of chest burning/tightness associated with dyspnea in early recovery with subsequent spontaneous resolution. Interpretation Summary Negative (adequate) stress echocardiogram Ordering Physician: Rajeev Dinh Referring Physician: Derrick Copeland Performed By: Shilpa Wills, OPHELIA, RVT
== END ==
PROVIDERS: Family Provider Family Medicine; PCP Family Medicine; Referring Provider Internal Medicine Cardiovascular Disease; Visit Provider Internal Medicine Cardiovascular Disease
DX: R07.9 Chest pain, unspecified (principal); I49.1 Atrial premature depolarization; I49.3 Ventricular premature depolarization; I47.2 Ventricular tachycardia
CPT/HCPCS: 93017; 93350

== ENCOUNTER 2019-08-26 14:05 | Emergency (ER) | payer OTHER, SELFPAY ==
[2019-04-24 15:06] VITALS: BMI 22.6
[2019-08-26] VITALS (7 sets, daily range): BP systolic 101–119; BP diastolic 65–86; PULSE 77–95; RESP 14–18; TEMP 36.8; O2SAT 96–100; BMI 23.4
--- NOTE | 2019-08-26 14:31 | EKG12_ITS ---
Test Reason : REPEAT Blood Pressure : / mmHG Vent. Rate : 125 BPM Atrial Rate : 170 BPM P-R Int : 000 ms QRS Dur : 086 ms QT Int : 310 ms P-R-T Axes : 000 081 -38 degrees QTc Int : 447 ms Atrial fibrillation with rapid ventricular response Nonspecific ST and T wave abnormality Abnormal ECG Confirmed by FREDDY MURILLO ([id number]), editorial project manager CHAR PLASCENCIA ([id number]) on 08/28/2019 1:56:55 PM Referred By: TRISTAN Confirmed By:FREDDY MURILLO
[2019-08-26] MEDS: 0.9% Normal Saline 1,000 ML 150 ML IV (14:48)
[2019-08-26 14:50] LABS: Absolute Lymphocyte Count 2.65 X10^3/uL (0.83-4.51); Basophil# 0.06 X10^3/uL; Basophil% 0.7 % (0-1); Eosinophil# 0.09 X10^3/uL; Eosinophils% 1.1 % (0-5); Hematocrit 42.7 % (37-47); Hemoglobin 14.5 g/dL (12.0-15.0); Lymphocyte # 2.65 X10^3/ul (4.0); Lymphocyte % 31.9 % (19-41); Mean Corpuscular Hgb 30.8 pg (27.0-32.0); Mean Corpuscular Volume 90.7 fL (81-99); Mean Platelet Vol. 8.6 fl (6.2-12.0); Monocyte# 0.46 X10^3/uL; Monocyte% 5.5 % (0-10); NRBC Flagged by Analyzer 0 % (0-5); Neutrophil # 5.03 X10^3/uL (2.7-7.7); Neutrophil % 60.6 % (47-70); Platelet Count 368 K/mm3 (150-450); RBC Distribution Width CV 11.9 % (11.6-14.6); RBC Distribution Width SD 39.5 fl (35.1-43.9); Red Blood Count 4.71 M/mm3 (4.2-5.4); White Blood Count 8.3 K/mm3 (4.4-11.0)
[2019-08-26 15:02] LABS: D-Dimer Quantitative (DVT/PE) 0.43 FEU/ug/m (0.27-0.49)
[2019-08-26 15:12] LABS: Anion Gap 4 (5-15); BUN 11 mg/dL (7-18); Calcium,Total 8.9 mg/dL (8.5-10.1); Chloride 110 mmol/L (98-107); Creatinine, Serum 0.79 mg/dL (0.55-1.02); EST Glomerular Filtration Rate 91 mL/min (>60); Est Glom Filt Rate - Afr Amer 110 mL/min (>60); Glucose 82 mg/dL (74-106); Potassium 3.4 mmol/L (3.5-5.1); Sodium Level 143 mmol/L (136-145)
--- NOTE | 2019-08-26 15:20 | ED.DCSUM_ITS ---
- ER Visit Summary Date of Service: 08/26/19 Chief Complaint: [Palpitations and tachycardia] History of Present Illness: The patient is a 29 F [presents to the emergency department with symptoms that started initially for 5 months ago. Patient states the initial episode was while she was at work and at rest in April 2018 when she had her heart rate go up over 200. Patient was seen in the emergency department and then later referred to Dr. Rajeev Dinh for follow-up. Patient had a stress echo that was unremarkable since then. Patient also wore a Holter monitor that showed PVCs and PACs. Patient was diagnosed with an atrial tachycardia and was started on labetalol. Patient currently is attempting to get and her primary care physician advised that she may want to hold off on her beta-ck. Patient states that she had stopped taking the labetalol however over the last 3 or 4 days she has had persistent episodes of tachycardia and feeling lightheaded with it. She is not had any syncopal episodes. Patient did have a stomach flu last week. Today patient's had a several episodes with her heart rate going up over 200. She is scheduled to see an EP sales and in home delivery specialist in 2 days.] Physical Examination: [HEENT-PERRLA, EOMI. Cranial nerves II through XII belén ssly intact. TMs clear. Mucous membranes moist. No adenopathy. Cardiovascular-regular rate and rhythm without murmur or ectopy Lungs-clear to auscultation, chest wall stable without crepitus or subcu emphysema Abdomen-normoactive bowel sounds, soft, nontender, no rebound or rigidity, no peritoneal signs. Extremities-intact ?4, normal range of motion, normal pulses, atraumatic] Test Results: [EKG obtained arrival shows sinus rhythm with a ventricular rate of 81 bpm with no acute segment changes. CBC with differential showing of 8.3, hemoglobin 14.5, hematocrit 43, placed 368. Chemistries unremarkable. Troponin is less than 0.15. D-dimer was normal 0.43. TSH was 1.30. Serum hCG] Emergency Department Course and Treatment: [Case was discussed with sales and in home delivery specialist on-call who recommended that we give metoprolol 50 mg p.o. Patient was given the metoprolol and seemed to decrease the frequency of the tachycardia however she continues to have episodes that are quite symptomatic with diaphoresis and chest pressure. The episodes seem to be more prolonged. This point I discussed with patient transfer to tertiary care center where she can have an EP evaluation.] I spoke with [facility] Dr. Parekh who is the hospitalist accepted transfer of patient. Treatment Plan: [Transfer] Disposition: [Transfer] Impression: [Tachycardia SVT] This note was generated with Twink[employer] dictation software. It may contain incorrect words, spelling, and punctuation that were not noted in review of the chart prior to signing ED Disposition - Plan for ED Patient: Referrals: Derrick Copeland DO [Primary Care Provider] -
[2019-08-26 15:51] LABS: Thyroid Stim Hormone (TSH) 1.31 uIU/mL (0.358-3.74)
[2019-08-26 16:26] LABS: Internal QC Validated? YES +Cl - CLEAR BKGD
[2019-08-26 16:33] LABS: Pregnancy, Serum, hCG Quali. NEGATIVE Negative
[2019-08-26] MEDS: Metoprolol(XL)Succ 50 MG Tablet PO (17:18)
--- NOTE | 2019-08-26 18:35 | EKG12_ITS ---
Test Reason : REPEAT Blood Pressure : / mmHG Vent. Rate : 153 BPM Atrial Rate : 000 BPM P-R Int : 000 ms QRS Dur : 084 ms QT Int : 310 ms P-R-T Axes : 000 088 -32 degrees QTc Int : 494 ms Supraventricular tachycardia Nonspecific ST and T wave abnormality Abnormal ECG Confirmed by FREDDY MURILLO ([id number]), editor index CHAR PLASCENCIA ([id number]) on 08/28/2019 1:57:14 PM Referred By: TRISTAN Confirmed By:FREDDY MURILLO
--- NOTE | 2019-08-26 18:37 | EKGRS_ITS ---
Test Reason : PALPIATIONS Blood Pressure : / mmHG Vent. Rate : 081 BPM Atrial Rate : 081 BPM P-R Int : 126 ms QRS Dur : 092 ms QT Int : 358 ms P-R-T Axes : 066 078 032 degrees QTc Int : 415 ms Normal sinus rhythm Normal ECG Confirmed by FREDDY MURILLO ([id number]), pictures editor CHAR PLASCENCIA ([id number]) on 08/28/2019 1:56:43 PM Referred By: MICHAEL/TRISTAN Confirmed By:FREDDY MURILLO
== END 2019-08-26 20:03 | disposition short-term general hospital (02) ==
LOC: ED 14:47
PROVIDERS: Emergency Provider Emergency Medicine; PCP Family Medicine
DX: I47.1 Supraventricular tachycardia (principal)
CPT/HCPCS: 80048; 84443; 84484; 84703; 85025; 85379; 93005; 96360; 96361; 99285; A4216

== ENCOUNTER → 2019-09-14 16:01 | Outpatient (CLI) | payer OTHER, SELFPAY ==
[2019-08-26 14:07] VITALS: BMI 23.4
[2019-09-19 17:47] LABS: HPV Reflexed? NOT INDICATED
== END ==
PROVIDERS: PCP Family Medicine; Visit Provider Obstetrics & Gynecology
DX: Z12.4 Encounter for screening for malignant neoplasm of cervix (principal)
CPT/HCPCS: 88175; G0145

== ENCOUNTER → 2020-05-20 14:51 | Outpatient (CLI) | payer OTHER, SELFPAY ==
[2019-08-26 14:07] VITALS: BMI 23.4
[2020-05-20 18:37] LABS: CRP < 2.90 mg/L (0.0-3.0)
[2020-05-22 16:08] LABS: Endomysial Antibody IgA Negative (Negative)
[2020-05-22 21:26] LABS: Immunoglobulin A 170 mg/dL (87-352); t-Transglutaminase IgA <2 U/mL (0-3)
== END ==
PROVIDERS: PCP Family Medicine; Referring Provider Internal Medicine Gastroenterology; Visit Provider Internal Medicine Gastroenterology
DX: R19.7 Diarrhea, unspecified (principal)
CPT/HCPCS: 36415; 82784; 83516; 86140; 86255

== ENCOUNTER 2020-06-11 09:36 | Emergency (ER) | payer OTHER, SELFPAY ==
[2019-08-26 14:07] VITALS: BMI 23.4
[2020-06-11 09:36] VITALS: BP 123/75; PULSE 76; RESP 18; TEMP 36.6; O2SAT 100; BMI 21.6
--- NOTE | 2020-06-11 09:59 | RAD_ITS ---
STUDY: X-RAY CHEST REASON FOR EXAM: Female, 30 years old. Chest pain/numbness since last night. Shortness of breath. TECHNIQUE: Single AP portable view of the chest. COMPARISON: Comparison is made with prior study 04/05/2019. FINDINGS: EKG electrodes are seen. Hyperinflation. The lungs are clear. There is no demonstrated pleural abnormality. Normal size heart. Normal mediastinum and tigre. Normal visualized pulmonary arteries. Normal visualized aortic arch and descending thoracic aorta. Normal visualized thoracic spine. Normal visualized ribs, clavicles, and shoulders. There is no demonstrated abnormality of the visualized soft tissue structures of the upper abdomen. RAD/Chest 1 View (Portable) IMPRESSION: Hyperinflation. Electronically Signed: Jefferson Salas, at 10:44 EST , Service support ,
--- NOTE | 2020-06-11 09:59 | EKG12_ITS ---
Test Reason : CHEST TIGHTNESS Blood Pressure : / mmHG Vent. Rate : 067 BPM Atrial Rate : 067 BPM P-R Int : 140 ms QRS Dur : 100 ms QT Int : 390 ms P-R-T Axes : 070 084 034 degrees QTc Int : 412 ms Normal sinus rhythm Normal ECG Confirmed by CHRISTY LANG, JORGE ([id number]), food editor REYMUNDO DALEY ([id number]) on 06/13/2020 2:01:25 PM Referred By: EL Confirmed By:JORGE HARRISON MD
--- NOTE | 2020-06-11 09:59 | ED.DCSUM_ITS ---
History of Present Illness Chief Complaint: Chest Pain Informant: Patient Onset: Days - 3 Activity at onset: Unknown - gradual onset Timing: Continuous Quality: Pressure, Tightness Location: Substernal, Left Chest Current Severity: Moderate Maximum Severity: Moderate Worsened By: Nothing. Not Worsened By: Breathing Relieved By: Nothing Associated Symptoms: Diaphoresis - this AM, Dyspnea - a little, hard to take a deep breath, Palpitations - this AM, in middle of night, for 1-2 minutes, racing. Negative for: Nausea, Vomiting, Cough, Fever, Lightheadedness Narrative: Patient says she has been having chest discomfort for the past several days, overnight she had an episode of palpitations and woke up sweaty, states it felt like when she has had episodes of atypical atrial flutter in the past but she usually does not get the palpitations since she has been on her medications, flecainide and metoprolol. She did not have any syncope or near syncope this morning when this occurred, she was sleeping just before waking up. She states yesterday she started having discomfort into her left arm, and it is worse today, feels like a pinching in her medial left upper arm, and her arm hurts worse to move as it does also hurt worse to move in her left trapezius and upper back. She denies any leg pain or swelling or history of DVT/PE. She does not take anticoagulants. She had COVID-19 in February which was 3-4 months ago, she states it lasted a while but she recovered uneventfully. She states she had a runny nose couple days recently, but no other symptoms such as cough, pleuritic pains. She admitted the triage and she was having pleuritic chest pain she denies it to me. She has not been coughing or having hemoptysis. She had some diarrhea couple weeks ago and she was tested again for COVID-19, she tested negative. She states she has a history of systemic inflammation in addition to chronic waxing and waning diffuse abdominal pains and diarrhea off and on, she thinks she has IBS, she had an EGD that showed inflammation and she was placed on Protonix, she has not had a colonoscopy yet and is still waiting for that. - Past Medical History (1) GERD (gastroesophageal reflux disease) Status: Chronic (2) Premature ventricular contraction Status: Chronic (3) Wide-complex tachycardia Status: Chronic Past Medical History - Allergies and Home Meds Allergies/Adverse Reactions: Allergies cephalexin Allergy (Verified 06/11/20 09:39) Hives fluconazole Allergy (Verified 06/11/20 09:39) Rash Primary Care Physician: Derrick Copeland DO [Primary Care Provider] - Surgical History: no surgical history Lives: Spouse/ Significant Other Smoking Status: Never smoker Review of Systems General: Denies: Chills, Fever, Sweats Eyes: Denies: Visual changes - bilaterally, Diplopia ENT: Reports: Rhinorrhea. Denies: Bilateral ear pain, Sore throat Cardiovascular: Reports: Chest pain. Denies: Palpitations Respiratory: Reports: Dyspnea. Denies: Cough, Dyspnea on exertion Gastrointestinal: Reports: Abdominal pain. Denies: Nausea, Vomiting, Diarrhea, Melena, Hematochezia Genitourinary: Denies: Dysuria, Hematuria, Frequency Musculoskeletal: Reports: Back pain - Upper, left, Extremity Pain. Denies: Myalgias, Neck pain, Swelling Skin: Denies: Rash, Wounds Neurological: Denies: Headache, Weakness, Numbness Physical Exam Vital Signs/Narrative: Vital Signs Temp Pulse Resp BP Pulse Ox 06/11/20 09:36 98 F 76 18 123/75 H 100 Inital Vital Signs reviewed: Yes General: Well nourished, Well developed, No Acute Distress Head: Normocephalic, Atraumatic Eyes: Perrl, EOMI ENT: Moist mucous membranes, No rhinorrhea Neck: Supple, Nontender, No lymphadenopathy, No JVD Cardiovascular: Regular rate, Regular rhythm, No murmurs. Negative for: Tachycardia, Bradycardia Respiratory: No distress, CTA bilaterally, Chest tenderness - Very tender left upper-mid chest Abdomen: Soft, Nontender, Nondistended, Normal bowel sounds Back: Nontender, Normal Inspection Extremities: Nontender, No edema. Negative for: Calf Tenderness Skin: Normal color, No rash, No Trauma Neurological: Alert, Oriented x3, Cranial nerves II-XII grossly intact, Normal Strength, Normal Sensation Psychological: Normal affect, Normal Mood Diagnostic/Tx/Re-eval Impressions Chest X-Ray 06/11/20 09:59 IMPRESSION: Hyperinflation. Electronically Signed: Jefferson Salas, at 10:44 EST , Service support , 06/11/20 09:59 Chest 1 View (Portable) [RAD] Stat Laboratory Results 06/11/20 06/11/20 10:02 10:02 WBC 5.5 RBC 4.64 Hgb 13.8 Hct 43.3 MCV 93.3 MCH 29.7 MCHC 31.9 L RDW Std Deviation 41.3 RDW Coeff of Ashlie 12.0 Plt Count 325 MPV 9.2 Immature Gran % (Auto) 0.200 Neut % (Auto) 65.5 Lymph % (Auto) 25.1 [place] % (Auto) 7.6 Eos % (Auto) 1.1 Baso % (Auto) 0.5 Absolute Neuts (auto) 3.6 Absolute Lymphs (auto) 1.39 Nucleated RBC % 0 Sodium 142 Potassium 3.8 Chloride 110 H Carbon Dioxide 29.0 Anion Gap 3 L BUN 9 Creatinine 0.75 Estim Creat Clear Calc 97.80 Est GFR (MDRD) Af Amer 115 Est GFR (MDRD) Non-Af 95 BUN/Creatinine Ratio 12.0 Glucose 91 Calcium 8.9 Troponin I < 0.015 - Rhythm Strip Rhythm Strip: Sinus Rhythm Rate: 65 Ectopy: None - EKG Initial EKG Interpretation: Sinus Rhythm, No Acute Injury Pattern - normal EKG Treatment: GI Cocktail - Medical Decision Making PERC score is 0, therefore do not think the patient needs a D-dimer or other work-up to rule out PE in this clinical scenario today. Worked her up with chest x-ray, blood work including troponin, EKG. It is all normal. I gave her a GI cocktail considering GI etiology such as esophageal spasm, GERD, however GI cocktail did not help her arm discomfort. Also gave her some Toradol, did not fix her either. Her chest is hurting a little less. With having discomfort for 2 or 3 constant days along with arm pain now and negative cardiac work-up, I reassured her I do not think this is cardiac pain. She is concerned about the fact that she has heart condition and she not infrequently gets these random pains in her chest and less often her arm. As I discussed with her I do not discourage her from coming to the emergency department to have these complaints evaluated, but also reassured her that the heart condition she was diagnosed with is not a risk factor for coronary disease/NM, and she is young and healthy and less likely to have an NM, certainly that does not make it impossible. I do think this is more likely to be esophageal in nature, she has had an abnormal EGD in the past. She had a normal colonoscopy remotely, and states she has been diagnosed with IBS since 15 years old. She has never been on Bentyl, and she is comfortable trying a dose now and taking a prescription to use as needed if this does help with some of her symptoms. Advised to follow-up. ED Disposition - Plan for ED Patient: Disposition: Home or Assisted Living Diagnosis: Palpitations, Chest pain, non-cardiac Instructions: ED Chest Pain, Noncardiac, ED Palpitations Prescriptions: Dicyclomine HCl [Bentyl] 20 mg PO Q6H PRN #20 cap PRN Reason: abdominal pain/spasm Prescription Printed Referrals: Derrick Copeland DO [Primary Care Provider] - 5-7 Days
[2020-06-11 10:10] VITALS: BP 107/89; PULSE 62; RESP 19; O2SAT 99
[2020-06-11 10:17] LABS: Absolute Lymphocyte Count 1.39 X10^3/uL (0.83-4.51); Absolute Neutrophil Count 3.6 X10^3/uL (2.0-7.7); Basophil# 0.03 X10^3/uL; Basophil% 0.5 % (0-1); Eosinophil# 0.06 X10^3/uL; Eosinophils% 1.1 % (0-5); Hematocrit 43.3 % (37-47); Hemoglobin 13.8 g/dL (12.0-15.0); Lymphocyte # 1.39 X10^3/ul (4.0); Lymphocyte % 25.1 % (19-41); Mean Corp Hgb Conc 31.9 g/dL (32-36); Mean Corpuscular Hgb 29.7 pg (27.0-32.0); Mean Corpuscular Volume 93.3 fL (81-99); Mean Platelet Vol. 9.2 fl (6.2-12.0); Monocyte# 0.42 X10^3/uL; Monocyte% 7.6 % (0-10); NRBC Flagged by Analyzer 0 % (0-5); Neutrophil # 3.63 X10^3/uL (2.7-7.7); Neutrophil % 65.5 % (47-70); Platelet Count 325 K/mm3 (150-450); RBC Distribution Width SD 41.3 fl (35.1-43.9); Red Blood Count 4.64 M/mm3 (4.2-5.4); White Blood Count 5.5 K/mm3 (4.4-11.0)
[2020-06-11] MEDS: Ketorolac 15 MG/ML Vial IV (10:20)
[2020-06-11] MEDS: Mag Hydrox/Al Hydrox/Simeth 30 ML UDC PO (10:20)
[2020-06-11 10:33] LABS: Anion Gap 3 (5-15); BUN 9 mg/dL (7-18); Calcium,Total 8.9 mg/dL (8.5-10.1); Chloride 110 mmol/L (98-107); Creatinine, Serum 0.75 mg/dL (0.55-1.02); EST Glomerular Filtration Rate 95 mL/min (>60); Est Glom Filt Rate - Afr Amer 115 mL/min (>60); Glucose 91 mg/dL (74-106); Potassium 3.8 mmol/L (3.5-5.1); Sodium Level 142 mmol/L (136-145)
[2020-06-11 11:05] VITALS: BP 118/79; PULSE 78; RESP 17; O2SAT 98
[2020-06-11] MEDS: Dicyclomine 10 MG Capsule 20 MG PO (11:15)
== END 2020-06-11 11:17 | disposition home or self-care (01) ==
LOC: ED 11:12
PROVIDERS: Emergency Provider Emergency Medicine; PCP Family Medicine
DX: R00.2 Palpitations (principal); R07.89 Other chest pain
CPT/HCPCS: 71045; 80048; 84484; 85025; 93005; 96374; 99285; A4216

== ENCOUNTER 2020-10-20 22:31 | Emergency (ER) | payer OTHER, SELFPAY ==
[2020-10-20 22:32] VITALS: BP 130/68; PULSE 68; RESP 18; TEMP 36.7; O2SAT 98; BMI 21.2
--- NOTE | 2020-10-20 22:50 | EKG12_ITS ---
Test Reason : PAIN Blood Pressure : / mmHG Vent. Rate : 062 BPM Atrial Rate : 062 BPM P-R Int : 128 ms QRS Dur : 096 ms QT Int : 386 ms P-R-T Axes : 072 084 030 degrees QTc Int : 391 ms Normal sinus rhythm with sinus arrhythmia Normal ECG Confirmed by YOLANDA LANG, NICK ([id number]), website/blog editor CHAR PLASCENCIA ([id number]) on 10/22/2020 1:05:42 PM Referred By: LINA Confirmed By:NICK GUERRERO MD
--- NOTE | 2020-10-20 22:52 | ED.DCSUM_ITS ---
History of Present Illness Chief Complaint: Other, Pain/Inj Informant: Patient Onset: Days Context: Gradual Onset Timing: Continuous Narrative: Patient is a 30-year-old female with history of atypical atrial flutter, IBS, interstitial cystitis, PCOD and GERD presenting with right-sided face and neck pain. Patient is concerned she has infection somewhere. She notes she has been dealing with seasonal allergies. Last week she started feeling like she was out swelling of the lymph node on her right neck. States over the weekend she felt very fatigued. This morning she had pain with movement from left to right of her neck. She states she also started to have pain in her right ear as well as burning vision in her right and right jaw pain. She notes she has some chest tightness but this is chronic. She is felt that sometimes her heartbeat has been irregular just not sure if she is throwing PVCs which she has have a history of. She states she also feels her heartbeat stronger than normal. She had some intermittent sharp pains in her right abdomen. She not take anything for pain because she states that she tries to do everything naturally. She denies any nausea, vomiting drainage or bowel habits. She denies any sick contacts. She states she had Covid in February 2020. She denies any fever. No other complaints at this time. Past Medical History - Allergies and Home Meds Allergies/Adverse Reactions: Allergies cephalexin Allergy (Verified 10/20/20 22:34) Hives fluconazole Allergy (Verified 10/20/20 22:34) Rash Primary Care Physician: Derrick Copeland DO [Primary Care Provider] - Past Medical History: - - Atypical atrial flutter, IBS, interstitial cystitis, GERD, PCOD, PVCs Surgical History: - - Cardiac ablation, EGD, , tonsillectomy Lives: Spouse/ Significant Other Smoking Status: Never smoker Review of Systems General: Reports: Malaise. Denies: Chills, Fever, Sweats Eyes: Denies: Visual changes - bilaterally, Diplopia ENT: Reports: Right ear pain, -. Denies: Rhinorrhea, Sore throat Cardiovascular: Reports: Palpitations. Denies: Heart racing Respiratory: Denies: Dyspnea, Cough, Dyspnea on exertion Gastrointestinal: Reports: Abdominal pain. Denies: Nausea, Vomiting, Diarrhea, Melena, Hematochezia Genitourinary: Denies: Dysuria, Hematuria, Frequency Musculoskeletal: Reports: Neck pain - right sided . Denies: Myalgias, Arthralgias, Back pain, Swelling, Extremity Pain Skin: Denies: Rash, Wounds Neurological: Denies: Headache, Weakness, Numbness Psych: Denies: Depression, Anxiety Physical Exam Vital Signs/Narrative: Vital Signs Temp Pulse Resp BP Pulse Ox 10/20/20 22:32 98.0 F 68 18 130/68 H 98 Inital Vital Signs reviewed: Yes General: Well nourished, Well developed, No Acute Distress Head: Normocephalic, Atraumatic Eyes: Perrl, EOMI ENT: Moist mucous membranes, No rhinorrhea, TM's clear, Sinus tenderness, - - Normal oropharynx. Negative for: Dry mucous membranes, Nasal congestion Neck: Supple, No lymphadenopathy, No JVD, - - Tenderness palpation of the right anterior neck around the sternocleidomastoid. No nuchal rigidity. No posterior neck tenderness palpation Cardiovascular: Regular rate, Regular rhythm, No murmurs Respiratory: No distress, CTA bilaterally, Chest nontender Abdomen: Soft, Nontender, Nondistended, Normal bowel sounds Back: Nontender, Normal Inspection Extremities: Nontender, No edema Skin: Normal color, No rash Neurological: Alert, Oriented x3, Cranial nerves II-XII grossly intact, Normal Strength, Normal Sensation Psychological: Normal affect, Normal Mood Diagnostic/Tx/Re-eval Clinical Impression(s) from Imaging Studies Chest X-Ray 10/20/20 23:20 IMPRESSION: Normal x-ray examination of the chest. Electronically Signed: Pj Banerjee MD at 23:34 EDT , Service support , Soft Tissue Neck X-Ray 10/20/20 23:20 IMPRESSION: No acute abnormalities. Electronically Signed: Kem Morales MD at 23:33 EDT Tel , Service support , - Rhythm Strip Rhythm Strip: Sinus Rhythm Rate: 62 Ectopy: None - EKG Initial EKG Interpretation: Sinus Rhythm, - - Normal sinus rhythm at a rate of 62 with sinus arrhythmia Normal intervals Normal axis Normal ST segments - Medical Decision Making She was evaluated for worsening pain on the right side of her neck as well as her right face. Her physical exam is benign with exception of some tenderness to palpation of the superior aspect of the sternocleidomastoid muscle. No associated soft tissue swelling noted. I do not appreciate any lymphadenopathy. Patient, she does have a history of TMJ. X-ray of the chest as well as soft tissue neck interpreted by myself as well as radiologist. No acute process is seen. Patient's vital signs are normal. Her rapid Covid is negative. Patient is counseled that the differential for her pain includes muscle skeletal, TMJ, trigeminal neuralgia, viral as well as allergies. Is recommended that she take anti-inflammatories to help with the pain and inflammation. Patient is quite hesitant to take medications but states she will consider it. She repeatedly declines any medications in the ER. She does not have any meningeal signs. She is able to nod when I am talking to her without any discomfort. Her vital signs are normal. I think she is stable for outpatient follow-up. She is instructed to follow-up with her primary care doctor in 2 days if she does not have any improvement or symptoms worsen. She is counseled that her symptoms could worsen and she develops further symptoms such as swelling, fever or any other concerns she should return to the emergency room. ED Disposition - Plan for ED Patient: Disposition: Home or Assisted Living Diagnosis: Neck pain Instructions: ED Neck Pain Referrals: Derrick Copeland DO [Primary Care Provider] - Additional Instructions: Your imaging and Covid test were all normal today. No signs of an obvious infection. Possibly could have a viral infection. Is also possible you could have a strain of the muscle/spasm or a flareup of your TMJ. Another possible diagnosis is trigeminal neuralgia. Please use ibuprofen to help with anti- inflammatory and pain if needed. Return the emergency room with any worsening symptoms. Call your doctor on Tuesday if you have not had any improvement or your symptoms worsen.
--- NOTE | 2020-10-20 23:20 | RAD_ITS ---
STUDY: X-RAY CHEST REASON FOR EXAM: Female, 30 years old. chest pain TECHNIQUE: PA and lateral chest. COMPARISON: June 11, 2020. FINDINGS: The lungs are clear and expanded. There is no demonstrated pleural abnormality. Normal size heart. Normal mediastinum and tigre. Normal visualized pulmonary arteries. Normal visualized aortic arch and descending thoracic aorta. Normal visualized thoracic spine. Normal visualized ribs, clavicles, and shoulders. There is no demonstrated abnormality of the visualized soft tissue structures of the upper abdomen. RAD/Chest PA and Lateral IMPRESSION: Normal x-ray examination of the chest. Electronically Signed: Pj Banerjee MD at 23:34 EDT , Service support ,
--- NOTE | 2020-10-20 23:20 | RAD_ITS ---
INDICATION: right neck pain EXAMINATION/TECHNIQUE: X-RAY - XR Neck Soft Tissue COMPARISON: None. FINDINGS: SOFT TISSUES: Unremarkable. No radiopaque foreign body. EPIGLOTTIS: No pathologic thickening or enlargement. PROXIMAL AIRWAY: Grossly patent. RAD/Neck for Soft Tissue IMPRESSION: No acute abnormalities. Electronically Signed: Kem Morales MD at 23:33 EDT Tel , Service support ,
[2020-10-21 00:31] VITALS: BP 106/80; PULSE 66; RESP 16; O2SAT 96
== END 2020-10-21 00:32 | disposition home or self-care (01) ==
PROVIDERS: Emergency Provider Emergency Medicine; PCP Family Medicine
DX: M54.2 Cervicalgia (principal); I48.4 Atypical atrial flutter
CPT/HCPCS: 70360; 71046; 87426; 93005; 99283